=== PATIENT | female | born 1960 | race Hispanic/Latino ===

== ENCOUNTER 2018-11-05 18:39 | Inpatient (IN) | payer OTHER ==
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
[2018-11-05] MEDS ORDERED: Oxycodone/Acetaminophen 5/325 mg Tab PO STA (19:07)
[2018-11-05] MEDS ORDERED: Sodium Chloride 0.9% 1,000 ML IV SCH (21:15)
[2018-11-05] MEDS ORDERED: Morphine 2 mg/ml ISec IVP STA (21:18)
[2018-11-05 21:54] LABS: BASO # 0.03 K/mm3 (0.0-2.0); BASO % 0.2 % (0.0-3.0); EOS # 0.1 (0.0-0.7); EOS % 0.5 % (1.5-5.0); HEMOGLOBIN 12.7 g/dL (12.0-16.0); LYMPH # 0.8 (1.2-3.4); MEAN CELL VOLUME 91.6 fl (80.0-105.0); MEAN CORPUSCULAR HEMOGLOBIN 31.2 pg (25.0-35.0); MEAN PLATELET VOLUME 9.9 fl (7.0-11.0); MONO # 0.6 (0.1-0.6); MONO % 3.8 % (1.0-6.0); PLATELET COUNT 242 10^3/uL (120.0-450.0); RBC 4.07 10^6/uL (3.5-6.1); RED CELL DISTRIBUTION WIDTH 12.4 % (11.5-14.5); WHITE BLOOD COUNT 16.2 10^3/uL (4.5-11.0)
[2018-11-05 22:04] LABS: ALB/GLOB RATIO 1.3 (1.1-1.8); ALBUMIN 4.6 g/dL (3.0-4.8); ALT/SGPT 33 U/L (7-56); AST/SGOT 49 U/L (14-36); BLOOD UREA NITROGEN 21 mg/dL (7-21); CALCIUM 9.4 mg/dL (8.4-10.5); GFR NON-AFRICAN AMERICAN > 60
[2018-11-05 22:11] LABS: BAND 2 % (0-2); EOSINOPHIL 3 % (0.0-3.0); LYMPHOCYTE 7 % (22.0-35.0); METAMYELOCYTE 1 %; MONOCYTE 1 % (1.0-6.0); NEUTROPHIL 86 % (50.0-70.0)
[2018-11-05 22:13] LABS: PLATELET ESTIMATE NORMAL (NORMAL)
[2018-11-05 22:47] LABS: PH,URINE 7.5 (4.7-8.0); URINE BILIRUBIN NEGATIVE (NEGATIVE); URINE BLOOD NEGATIVE (NEGATIVE); URINE GLUCOSE (UA) NEGATIVE (NEGATIVE); URINE LEUKOCYTE ESTERASE NEGATIVE Leu/uL (NEGATIVE); URINE PROTEIN NEGATIVE mg/dL (<30 mg/dL); URINE UROBILINOGEN 0.2 E.U./dL (<1 E.U./dL)
[2018-11-05 22:48] LABS: URINE APPEARANCE CLEAR (CLEAR); URINE COLOR YELLOW (YELLOW)
[2018-11-05] MEDS ORDERED: Piperacillin/Tazobact 3.375 gm 100 ML IVPB STA (22:55)
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
[2018-11-05] MEDS ORDERED: Morphine 2 mg/ml ISec IVP PRN (23:22)
[2018-11-05] MEDS: cefTRIAXone 1 gm 1 GM/100 ML BAG IVPB SCH (23:39)
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
[2018-11-06] MEDS: metroNIDAZOLE IV 500 mg/100 ml 500 MG/100 ML BAG IVPB SCH ×3 (03:25→21:57)
[2018-11-06 04:27] LABS: BASO # 0.01 K/mm3 (0.0-2.0); BASO % 0.1 % (0.0-3.0); EOS % 0.2 % (1.5-5.0); HEMOGLOBIN 11.9 g/dL (12.0-16.0); LYMPH # 0.8 (1.2-3.4); LYMPH % 8.5 % (22.0-35.0); MEAN CELL VOLUME 92.1 fl (80.0-105.0); MEAN CORPUSCULAR HEMOGLOBIN 31.2 pg (25.0-35.0); MEAN CORPUSCULAR HGB CONC 33.9 g/dl (31.0-37.0); MEAN PLATELET VOLUME 9.8 fl (7.0-11.0); MONO # 0.4 (0.1-0.6); MONO % 4.5 % (1.0-6.0); RBC 3.81 10^6/uL (3.5-6.1); RED CELL DISTRIBUTION WIDTH 12.6 % (11.5-14.5); WHITE BLOOD COUNT 9.5 10^3/uL (4.5-11.0)
[2018-11-06 04:39] LABS: INR 1.23; PARTIAL THROMBOPLASTIN TIME 34.6 Seconds (26.9-38.3); PROTHROMBIN TIME 13.7 SECONDS (9.4-12.5)
[2018-11-06 04:44] LABS: ALB/GLOB RATIO 1.2 (1.1-1.8); ALBUMIN 3.6 g/dL (3.0-4.8); ALT/SGPT 32 U/L (7-56); AST/SGOT 38 U/L (14-36); BLOOD UREA NITROGEN 14 mg/dL (7-21); CALCIUM 8.6 mg/dL (8.4-10.5); GFR NON-AFRICAN AMERICAN > 60
[2018-11-06 08:07] LABS: BASO # 0.02 K/mm3 (0.0-2.0); BASO % 0.3 % (0.0-3.0); EOS # 0.1 (0.0-0.7); EOS % 0.7 % (1.5-5.0); HEMOGLOBIN 11.8 g/dL (12.0-16.0); LYMPH # 0.6 (1.2-3.4); MEAN CELL VOLUME 91.9 fl (80.0-105.0); MEAN CORPUSCULAR HEMOGLOBIN 30.9 pg (25.0-35.0); MEAN CORPUSCULAR HGB CONC 33.6 g/dl (31.0-37.0); MEAN PLATELET VOLUME 9.8 fl (7.0-11.0); MONO # 0.4 (0.1-0.6); MONO % 5.5 % (1.0-6.0); RBC 3.82 10^6/uL (3.5-6.1); RED CELL DISTRIBUTION WIDTH 12.7 % (11.5-14.5); WHITE BLOOD COUNT 7.6 10^3/uL (4.5-11.0)
--- NOTE | 2018-11-06 08:46 | CARD ---
APPROVED REPORT Date of service: 11/05/2018 EKG Measurement Heart [id number] <Conclusion> Normal sinus rhythm Low voltage QRS Abnormal ECG
--- NOTE | 2018-11-06 09:19 | CP.PCM.PN ---
Subjective - Date & Time of Evaluation Date of Evaluation: 11/06/18 Time of Evaluation: 06:25 - Subjective Subjective: General Surgery Pt seen and examined. Afebrile. Reports pain in R hip. No N/V, F/C. Says abdominal pain is not there and she does not want surgery. No other complaints. Objective - Vital Signs/Intake and Output Vital Signs (last 24 hours): Temp Pulse Resp BP Pulse Ox 98.5 F 69 20 109/69 97 11/06/18 06:00 11/06/18 06:00 11/06/18 06:00 11/06/18 06:00 11/06/18 06:00 - Medications Medications: Current Medications Acetaminophen (Tylenol 325mg Tab) 650 mg PO Q6H PRN PRN Reason: Pain, Mild (1-3) Acetaminophen (Tylenol 325mg Tab) 650 mg PO Q4H PRN PRN Reason: Pain, Mild (1-3) Docusate Sodium (Colace) 100 mg PO BID JAEL Heparin Sodium (Porcine) (Heparin) 5,000 units SC Q8 [facility]; Protocol Sodium Chloride (Sodium Chloride 0.9%) 1,000 mls @ 100 mls/hr IV .Q10H JAEL Last Admin: 11/05/18 21:30 Dose: 100 mls/hr Metronidazole (Flagyl) 500 mg in 100 mls @ 100 mls/hr IVPB Q8 [facility]; Protocol Last Admin: 11/06/18 03:25 Dose: 100 mls/hr Ceftriaxone Sodium (Rocephin 1 Gram Ivpb) 1 gm in 100 mls @ 100 mls/hr IVPB DAILY [facility]; Protocol Last Admin: 11/05/18 23:39 Dose: 100 mls/hr Ibuprofen (Motrin Tab) 400 mg PO Q6H PRN PRN Reason: Pain, Mild (1-3) Last Admin: 11/05/18 23:36 Dose: 400 mg Ketorolac Tromethamine (Toradol) 15 mg IM Q6 JAEL Stop: 11/11/18 06:52 Morphine Sulfate (Morphine) 2 mg IVP Q4H PRN PRN Reason: Pain, severe (8-10) Ondansetron HCl (Zofran Inj) 4 mg IVP Q6H PRN PRN Reason: Nausea/Vomiting - Labs Labs: 11/06/18 08:00 11/06/18 04:00 PT 13.7 SECONDS (9.4-12.5) H 11/06/18 04:00 INR 1.23 11/06/18 04:00 APTT 34.6 Seconds (26.9-38.3) 11/06/18 04:00 - Constitutional Appears: Non-toxic, No Acute Distress - Head Exam Head Exam: ATRAUMATIC, NORMOCEPHALIC - Eye Exam Eye Exam: EOMI. absent: Scleral icterus - Respiratory Exam Respiratory Exam: NORMAL BREATHING PATTERN. absent: Respiratory Distress - GI/Abdominal Exam GI & Abdominal Exam: Soft. absent: Distended, Firm, Guarding, Rigid Additional comments: pain along superior pubic rami - Extremities Exam Extremities Exam: absent: Calf Tenderness, Pedal Edema - Neurological Exam Neurological Exam: Alert, Awake, Oriented x3 - Skin Skin Exam: Dry, Warm Assessment and Plan - Assessment and Plan (Free Text) Assessment: 58F with R hip fx, R/O appendicitis Plan: - Continue Abx - Pain management - DVT ppx - F/U Ortho recs - AM labs improved - We will continue to monitor patient's course clinically and make surgical recommendations as warranted. D/W Dr. Jose Ngo PGY4
[2018-11-06] MEDS: cefTRIAXone 1 gm 1 GM/100 ML BAG IVPB SCH (09:43)
[2018-11-06 11:50] LABS: HEMOGLOBIN 11.2 g/dL (12.0-16.0)
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
--- NOTE | 2018-11-06 15:57 | RAD ---
Date of service: 11/05/2018 HISTORY: Medical clearance COMPARISON: No prior. FINDINGS: LUNGS: No active pulmonary disease. PLEURA: No significant pleural effusion identified, no pneumothorax apparent. CARDIOVASCULAR: No aortic atherosclerotic calcification present. Normal cardiac size. No pulmonary vascular congestion. OSSEOUS STRUCTURES: No significant abnormalities. VISUALIZED UPPER ABDOMEN: Normal. OTHER FINDINGS: None. IMPRESSION: No active disease.
[2018-11-07] MEDS: metroNIDAZOLE IV 500 mg/100 ml 500 MG/100 ML BAG IVPB SCH (05:35)
[2018-11-07 07:08] LABS: BASO # 0.03 K/mm3 (0.0-2.0); BASO % 0.4 % (0.0-3.0); EOS # 0.2 (0.0-0.7); EOS % 2.3 % (1.5-5.0); HEMOGLOBIN 10.4 g/dL (12.0-16.0); LYMPH # 0.9 (1.2-3.4); LYMPH % 10.8 % (22.0-35.0); MEAN CORPUSCULAR HGB CONC 33.7 g/dl (31.0-37.0); MONO # 0.5 (0.1-0.6); MONO % 6.3 % (1.0-6.0); RBC 3.36 10^6/uL (3.5-6.1); WHITE BLOOD COUNT 7.9 10^3/uL (4.5-11.0)
[2018-11-07 07:17] LABS: ALB/GLOB RATIO 1.1 (1.1-1.8); ALBUMIN 3.4 g/dL (3.0-4.8); ALT/SGPT 25 U/L (7-56); AST/SGOT 31 U/L (14-36); BLOOD UREA NITROGEN 10 mg/dL (7-21); CALCIUM 8.5 mg/dL (8.4-10.5); GFR NON-AFRICAN AMERICAN > 60
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
[2018-11-07] MEDS: cefTRIAXone 1 gm 1 GM/100 ML BAG IVPB SCH (09:54)
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
[2018-11-08 07:57] LABS: BASO # 0.02 K/mm3 (0.0-2.0); BASO % 0.3 % (0.0-3.0); EOS # 0.3 (0.0-0.7); EOS % 4.1 % (1.5-5.0); HEMOGLOBIN 10.1 g/dL (12.0-16.0); LYMPH # 1.5 (1.2-3.4); LYMPH % 21.6 % (22.0-35.0); MEAN CELL VOLUME 92.7 fl (80.0-105.0); MEAN CORPUSCULAR HEMOGLOBIN 30.7 pg (25.0-35.0); MEAN CORPUSCULAR HGB CONC 33.1 g/dl (31.0-37.0); MEAN PLATELET VOLUME 9.2 fl (7.0-11.0); MONO # 0.5 (0.1-0.6); MONO % 6.5 % (1.0-6.0); RBC 3.29 10^6/uL (3.5-6.1); RED CELL DISTRIBUTION WIDTH 12.9 % (11.5-14.5)
[2018-11-08 08:10] LABS: ALB/GLOB RATIO 1.1 (1.1-1.8); ALBUMIN 3.4 g/dL (3.0-4.8); ALT/SGPT 21 U/L (7-56); AST/SGOT 26 U/L (14-36); BLOOD UREA NITROGEN 11 mg/dL (7-21); CALCIUM 8.7 mg/dL (8.4-10.5); GFR NON-AFRICAN AMERICAN > 60
[2018-11-08 08:11] LABS: IRON 42 ug/dL (45-180)
[2018-11-08 08:21] LABS: % IRON SATURATION 16 % (20-55); TOTAL IRON BINDING CAPACITY 261 ug/dL (265-497)
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
--- NOTE | 2018-11-09 13:52 | US ---
HISTORY: Leg pain and swelling. Evaluate for DVT PHYSICIAN(S): Talon Ann MD. TECHNIQUE: Duplex sonography and color-flow Doppler with graded compression were used to evaluate the deep venous systems of both lower extremities. FINDINGS: The visualized deep venous systems of both lower extremities are sonographically normal and compressible. Normal wave forms and augmentation are seen. There is no sonographic evidence for deep venous thrombosis in the visualized segments of both lower extremities. IMPRESSION: No sonographic evidence for deep venous thrombosis in the visualized segments of both lower extremities.
[2018-11-09] MEDS ORDERED: Barium Sulfate Susp 2.1% w/v, 2.0% w/w 450 mL Bottle PO ONE (14:12)
--- NOTE | 2018-11-09 16:17 | RAD ---
Date of service: 11/09/2018 HISTORY: episode of orthopnea overnight COMPARISON: 11/05/2018. FINDINGS: LUNGS: No active pulmonary disease. PLEURA: No significant pleural effusion identified, no pneumothorax apparent. CARDIOVASCULAR: No atherosclerotic calcification present Normal. OSSEOUS STRUCTURES: No significant abnormalities. VISUALIZED UPPER ABDOMEN: Normal. OTHER FINDINGS: None. IMPRESSION: No active disease. No significant interval change compared to the prior examination(s).
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
[2018-11-15 08:22] LABS: BASO # 0.03 K/mm3 (0.0-2.0); BASO % 0.5 % (0.0-3.0); EOS # 0.3 (0.0-0.7); EOS % 5.2 % (1.5-5.0); HEMOGLOBIN 10.5 g/dL (12.0-16.0); LYMPH # 1.2 (1.2-3.4); MEAN CORPUSCULAR HEMOGLOBIN 30.6 pg (25.0-35.0); MEAN CORPUSCULAR HGB CONC 32.9 g/dl (31.0-37.0); MEAN PLATELET VOLUME 9.1 fl (7.0-11.0); MONO # 0.5 (0.1-0.6); MONO % 9.6 % (1.0-6.0); RBC 3.43 10^6/uL (3.5-6.1); RED CELL DISTRIBUTION WIDTH 13.6 % (11.5-14.5); WHITE BLOOD COUNT 5.6 10^3/uL (4.5-11.0)
[2018-11-15 08:49] LABS: ALB/GLOB RATIO 1.2 (1.1-1.8); ALT/SGPT 64 U/L (7-56); AST/SGOT 41 U/L (14-36); BLOOD UREA NITROGEN 16 mg/dL (7-21); CALCIUM 9.4 mg/dL (8.4-10.5); GFR NON-AFRICAN AMERICAN > 60
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
[2018-11-15] MEDS: Cholecalciferol 1,000 INTLU TAB PO SCH (13:40)
[2018-11-16] MEDS: Cholecalciferol 1,000 INTLU TAB PO SCH (09:46)
[2018-11-16 14:15] LABS: ALB/GLOB RATIO 1.2 (1.1-1.8); ALBUMIN 4.4 g/dL (3.0-4.8); ALT/SGPT 51 U/L (7-56); AST/SGOT 35 U/L (14-36); BLOOD UREA NITROGEN 20 mg/dL (7-21); CALCIUM 9.8 mg/dL (8.4-10.5); GFR NON-AFRICAN AMERICAN > 60
[2018-11-16 17:15] LABS: HEPATITIS B SURFACE AG Negative (NEGATIVE)
[2018-11-16 17:21] LABS: HEPATITIS A IGM NEGATIVE (NEGATIVE); HEPATITIS B CORE AB NEGATIVE (NEGATIVE)
[2018-11-16 17:32] LABS: HEPATITIS C ANTIBODY NEGATIVE (NEGATIVE)
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
--- NOTE | 2018-11-16 18:24 | US ---
Date of service: Exam 11/16/2018 HISTORY: r/o acute kaity COMPARISON: Not available TECHNIQUE: Sonographic evaluation of the abdomen. FINDINGS: LIVER: Measures 13.5 cm. Diffusely increased echogenicity of the liver parenchyma. Consistent with fatty infiltration. Smooth contour. No mass. No biliary ductal dilatation. Normal hepatopetal portal venous flow. GALLBLADDER: Unremarkable. No gallstones. COMMON BILE DUCT: Measures 5 mm. No stones. No dilatation. PANCREAS: Unremarkable as visualized. No mass. No ductal dilatation. RIGHT KIDNEY: Measures 10.8cm. Normal echogenicity. No calculus, mass, or hydronephrosis. LEFT KIDNEY: Measures 9.2cm. Normal echogenicity. No calculus, mass, or hydronephrosis. SPLEEN: Normal in size and contour. No mass. AORTA: No aneurysmal dilatation. IVC: Unremarkable. OTHER FINDINGS: None. IMPRESSION: Fatty infiltration of the liver. Otherwise unremarkable examination. No evidence of cholelithiasis or cholecystitis.
[2018-11-16 22:43] VITALS: TEMP 98
[2018-11-17 07:21] LABS: HEMOGLOBIN 10.7 g/dL (12.0-16.0); MEAN CELL VOLUME 93.4 fl (80.0-105.0); MEAN CORPUSCULAR HEMOGLOBIN 30.9 pg (25.0-35.0); MEAN CORPUSCULAR HGB CONC 33.1 g/dl (31.0-37.0); MEAN PLATELET VOLUME 9.3 fl (7.0-11.0); RBC 3.46 10^6/uL (3.5-6.1); RED CELL DISTRIBUTION WIDTH 13.9 % (11.5-14.5); WHITE BLOOD COUNT 6.8 10^3/uL (4.5-11.0)
--- NOTE | 2018-11-17 07:28 | CP.PCM.PN ---
Subjective - Date & Time of Evaluation Date of Evaluation: 11/17/18 Time of Evaluation: 07:27 Objective - Vital Signs/Intake and Output Vital Signs (last 24 hours): Temp Pulse Resp BP Pulse Ox 98 F 83 18 105/65 96 11/16/18 22:00 11/16/18 22:00 11/16/18 22:00 11/16/18 22:00 11/16/18 22:00 Intake and Output: 11/17/18 11/17/18 06:59 18:59 Intake Total 620 Output Total 4 Balance 616 - Medications Medications: Current Medications Acetaminophen (Tylenol 325mg Tab) 650 mg PO Q8H PRN PRN Reason: Pain, Mild (1-3) Cholecalciferol (Vitamin D) 2,000 intlu PO DAILY [facility] Last Admin: 11/16/18 09:46 Dose: 2,000 intlu Docusate Sodium (Colace) 100 mg PO BID [facility] Last Admin: 11/16/18 17:07 Dose: Not Given Heparin Sodium (Porcine) (Heparin) 5,000 units SC Q8 JAEL; Protocol Last Admin: 11/17/18 05:28 Dose: 5,000 units Ibuprofen (Motrin Tab) 400 mg PO Q6H PRN PRN Reason: Pain, Mild (1-3) Last Admin: 11/16/18 18:42 Dose: 400 mg Ondansetron HCl (Zofran Inj) 4 mg IVP Q6H PRN PRN Reason: Nausea/Vomiting - Labs Labs: 11/17/18 06:30 11/16/18 13:30 PT 13.7 SECONDS (9.4-12.5) H 11/06/18 04:00 INR 1.23 11/06/18 04:00 APTT 34.6 Seconds (26.9-38.3) 11/06/18 04:00
[2018-11-17 07:43] LABS: ALB/GLOB RATIO 1.3 (1.1-1.8); ALBUMIN 4.1 g/dL (3.0-4.8); ALT/SGPT 45 U/L (7-56); AST/SGOT 46 U/L (14-36); BLOOD UREA NITROGEN 19 mg/dL (7-21); CALCIUM 9.5 mg/dL (8.4-10.5); GFR NON-AFRICAN AMERICAN > 60
[2018-11-17 08:02] VITALS: BP 112/68; PULSE 81; RESP 20; O2SAT 99
[2018-11-17] MEDS: Cholecalciferol 1,000 INTLU TAB PO SCH (09:33)
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
== END 2018-11-17 14:04 | DRG 552 ==
LOC: ED 18:39 → ERH 23:06 → 5RNO 11-06 02:36 → OBSVTOIN 11-07 18:08
PROVIDERS: ADMIT Internal Medicine; ATTEND Hospitalist
DX: S32.119A Unspecified Zone I fracture of sacrum, initial encounter for closed fracture (principal); S32.591A Other specified fracture of right pubis, initial encounter for closed fracture; S32.601A Unspecified fracture of right ischium, initial encounter for closed fracture; K35.80 Unspecified acute appendicitis; V03.10XA Pedestrian on foot injured in collision with car, pick-up truck or van in traffic accident, initial encounter; Y92.410 Unspecified street and highway as the place of occurrence of the external cause; S20.229A Contusion of unspecified back wall of thorax, initial encounter; K59.00 Constipation, unspecified; K76.0 Fatty (change of) liver, not elsewhere classified; D64.9 Anemia, unspecified